=== PATIENT | male | born 1990 | race Hispanic/Latino ===

== ENCOUNTER 2023-11-12 16:38 | Emergency (ER) | payer OTHER, SELFPAY ==
[2023-11-12 16:49] VITALS: PULSE 67; RESP 16; TEMP 36.2; O2SAT 100; BMI 25.1
--- NOTE | 2023-11-12 17:11 | DI.CT.S_ITS ---
PROCEDURE: CT LUMBAR SPINE WO CON INDICATIONS: pain/ injury TECHNIQUE: Noncontrast 3 mm thick sections acquired from the T12 level to the sacrum. Sagittal and coronal reformats were constructed. For radiation dose reduction, the following was used: automated exposure control. COMPARISON: None. FINDINGS: Image quality: Excellent. Bones: There is straightening of the normal lumbar lordosis that may be secondary to positioning or muscle spasm. No acute vertebral body compression fractures. No suspicious lytic or blastic bony lesions. No pars defects. T12-L1, L1-2, L2-3, L3-4, and L4-5: No significant spinal canal stenosis or neural foraminal narrowing. L5-S1: Right paracentral disc extrusion is seen measuring approximately the 12 x 12 x 13 mm, which effaces the right lateral recess and could impinge upon the traversing right S1 nerve root. There is also moderate right and bcfk-ix-eopvyhsp left neural foraminal narrowing at this level due to circumferential disc bulging. Mild narrowing of the central spinal canal is seen. Soft tissues: No retroperitoneal masses or hematomas. Visualized aorta is normal in caliber. IMPRESSION: At L5-S1, a right paracentral disc extrusion is seen superimposed on circumferential disc bulging, which results in effacement of the right lateral recess and possible impingement upon the traversing right S1 nerve root. Recommend correlation with neurologic exam findings. There is also mild narrowing of the spinal canal as well as moderate right and lfse-vw-tmeznbfs left neural foraminal narrowing. Approved by: Bishop Castillo M.D. on 11/12/2023 at 17:30
--- NOTE | 2023-11-12 19:29 | ED_ITS ---
HPI - Back Pain/Injury General Chief Complaint: Back Pain/Injury Stated Complaint: back pain, rt leg numbness/pain unable to wt bear Time Seen by Provider: 11/12/23 19:08 Source: patient Mode of arrival: Ambulatory Limitations: no limitations History of Present Illness HPI Narrative: Patient is a 32-year-old male who approximately 1 week ago had an incident where he was bending over to pick something up and started to have lower back discomfort. Has a sudden onset. It is both sides but right more than left. He went to an outside emergency department. Was prescribed Mobic and Robaxin. He has been taking these medications with only minimal relief. He does have radiation down to his right leg. No change in bowel habits. No urinary symptoms. Is emptying his bladder. No fevers. No Abdominal pain. Related Data Previous Rx's Medication Instructions Recorded hydrocodone 5 mg-acetaminophen 325 1 tab PO Q8H PRN pain #20 tabs 11/12/23 mg tablet meloxicam 7.5 mg tablet 7.5 mg PO BID #60 tabs 11/12/23 methylprednisolone 4 mg tablets in See Rx Instructions PO .COMPLEX 11/12/23 a dose pack (Medrol (Thad)) #21 ea Allergies Allergy/AdvReac Type Severity Reaction Status Date / Time No Known Drug Allergies Allergy Verified 11/12/23 16:53 Review of Systems Constitutional Constitutional: Reports system reviewed and no additional complaints, except as documented Musculoskeletal Musculoskeletal: Reports system reviewed and no additional complaints, except as documented Integumentary/Breasts Skin/Breast: Reports system reviewed and no additional complaints, except as documented Neurologic Neurologic: Reports system reviewed and no additional complaints, except as documented Patient History Social History Smoking Status: Never smoker Smoking Status: Never smoker alcohol intake frequency: other Substance Use Type: does not use Exam Initial Vital Signs Initial Vital Signs: Vital Signs Temperature 97.2 F L 11/12/23 16:49 Pulse Rate 67 11/12/23 16:49 Respiratory Rate 16 11/12/23 16:49 Pulse Oximetry 100 11/12/23 16:49 Oxygen Delivery Method Room Air 11/12/23 16:49 Const General: No ill appearing HENMT Head: normal to inspection and normocephalic Resp Effort & Inspection: normal respiratory effort Cardio Rate: regular rate GI Inspection: normal to inspection and non-distended Palpation: soft and No tender Back/Spine/Pelvis Thoracic/Lumbar Spine: No thoraco-lumbar spasm, No thoracic spinal tenderness and No lumbar spinal tenderness Neuro General: patient alert, patient awake and moves all extremities Extrem Other: No gross deformities Course Orders Ordered: ED Orders 11/12/23 17:11 CT lumbar spine wo con Stat Discontinued Medications Hydromorphone HCl (Hydromorphone 1 Mg Inj) 1 mg IM NOW ONE Stop: 11/12/23 19:30 Last Admin: 11/12/23 19:41 Dose: 1 mg Documented By: SB Ketorolac Tromethamine (Ketorolac 30 Mg/Ml Vial) 30 mg IM NOW ONE Stop: 11/12/23 19:30 Last Admin: 11/12/23 19:41 Dose: 30 mg Documented By: SB Vital Signs Vital signs: Vital Signs - 8 hr 11/12/23 19:38 Pulse Rate 66 Respiratory Rate 14 Blood Pressure 120/75 Pulse Oximetry 100 MDM - Back Pain/Injury Imaging Data CT lumbar spine: Radiologist's Impression: PROCEDURE: CT LUMBAR SPINE WO CON INDICATIONS: pain/ injury TECHNIQUE: Noncontrast 3 mm thick sections acquired from the T12 level to the sacrum. Sagittal and coronal reformats were constructed. For radiation dose reduction, the following was used: automated exposure control. COMPARISON: None. FINDINGS: Image quality: Excellent. Bones: There is straightening of the normal lumbar lordosis that may be secondary to positioning or muscle spasm. No acute vertebral body compression fractures. No suspicious lytic or blastic bony lesions. No pars defects. T12-L1, L1-2, L2-3, L3-4, and L4-5: No significant spinal canal stenosis or neural foraminal narrowing. L5-S1: Right paracentral disc extrusion is seen measuring approximately the 12 x 12 x 13 mm, which effaces the right lateral recess and could impinge upon the traversing right S1 nerve root. There is also moderate right and [id number]-do-mtbxetvl left neural foraminal narrowing at this level due to circumferential disc bulging. Mild narrowing of the central spinal canal is seen. Soft tissues: No retroperitoneal masses or hematomas. Visualized aorta is normal in caliber. IMPRESSION: At L5-S1, a right paracentral disc extrusion is seen superimposed on circumferential disc bulging, which results in effacement of the right lateral recess and possible impingement upon the traversing right S1 nerve root. Recommend correlation with neurologic exam findings. There is also mild narrowing of the spinal canal as well as moderate right and gbls-[id number] left neural foraminal narrowing MDM Narrative Medical decision making narrative: CT scan shows no acute fractures. There are findings on the CT scan that would be consistent with disc disease which given his presentation today is not surprising. Low suspicion for cauda equina. No fevers. No saddle anesthesia. No urinary issues. I did discuss back pain with him. I suspect that his back pain will improve with time. We discussed conservative measures to include he at/ice and also staying active. I will refill his Mobic. We will also sent home with a prescription for pain medication. Steroids for short period of time as well. Do recommend that he follow-up with his primary provider to discuss further evaluation to include a referral to see physical therapy and potentially an MRI. Patient expressed understanding and agreement. Discharge Plan Departure Patient Disposition: Home Clinical Impression: Lumbar back pain with radiculopathy affecting lower extremity Instructions: DI for Low Back Pain Activity Restrictions/Additional Instructions: I recommend you take all medications as directed. You are going to need a follow-up with your medical department for fdc work-related restrictions. You can ambulate as tolerated. Return to the emergency department for new symptoms. Prescriptions: New meloxicam 7.5 mg tablet 7.5 mg PO BID Qty: 60 2RF hydrocodone-acetaminophen 5-325 mg tablet 1 tab PO Q8H PRN (Reason: pain) Qty: 20 0RF methylprednisolone [Medrol (Thad)] 4 mg tablets,dose pack See Rx Instructions .ROUTE .COMPLEX Qty: 21 0RF Rx Instructions: orally per package directions Referrals: Key Nguyen MD [Primary Care Provider] - Stand Alone Forms: Patient Portal/API, Work Release Note
[2023-11-12 19:38] VITALS: BP 120/75; PULSE 66; RESP 14; O2SAT 100
[2023-11-12] MEDS: HYDROMORPHONE 1 MG INJ IM (19:41)
[2023-11-12] MEDS: KETOROLAC 30 MG/ML VIAL IM (19:41)
== END 2023-11-12 20:00 | disposition home or self-care (01) ==
PROVIDERS: Emergency Provider Emergency Medicine; PCP Student in an Organized Health Care Education/Training Program
DX: M54.16 Radiculopathy, lumbar region (principal)
CPT/HCPCS: 72131; 96372; 99283; 99284; J1170; J1885

== ENCOUNTER 2023-12-30 20:18 | Emergency (ER) | payer OTHER, SELFPAY ==
[2023-12-30] VITALS (10 sets, daily range): BP systolic 113–132; BP diastolic 61–77; PULSE 67–80; RESP 15–20; TEMP 36.3; O2SAT 98–100; BMI 25.7
--- NOTE | 2023-12-30 20:49 | ED_ITS ---
HPI - Chest Pain General Chief Complaint: Chest Pain Stated Complaint: chest pains/lt arm pain/slurred speech/facial Time Seen by Provider: 12/30/23 20:30 Source: patient Mode of arrival: Ambulatory Limitations: no limitations History of Present Illness HPI narrative: 33-year-old male with no significant past medical history presents for evaluation of chest pain. Patient reports 2 weeks of intermittent chest pains. Sometimes in the left-hand side, sometimes on the right-hand side. Patient states that occasionally the pain will radiate to his arms and cause him to occasionally have bilateral arm numbness. Patient reported slurred speech in triage, however he denies this to me. Denies family history of heart problems. Related Data Previous Rx's Medication Instructions Recorded hydrocodone 5 mg-acetaminophen 325 1 tab PO Q8H PRN pain #20 tabs 11/12/23 mg tablet meloxicam 7.5 mg tablet 7.5 mg PO BID #60 tabs 11/12/23 methylprednisolone 4 mg tablets in See Rx Instructions PO .COMPLEX 11/12/23 a dose pack (Medrol (Thad)) #21 ea Allergies Allergy/AdvReac Type Severity Reaction Status Date / Time No Known Drug Allergies Allergy Verified 11/12/23 16:53 Review of Systems Review of Systems Narrative: See HPI Patient History Social History Smoking Status: Never smoker Smoking Status: Never smoker alcohol intake frequency: other Substance Use Type: does not use Exam Initial Vital Signs Initial Vital Signs: Vital Signs Temperature 97.3 F L 12/30/23 20:20 Pulse Rate 77 12/30/23 20:20 Respiratory Rate 16 12/30/23 20:20 Blood Pressure 130/77 12/30/23 20:20 Pulse Oximetry 100 12/30/23 20:20 Oxygen Delivery Method Room Air 12/30/23 20:20 Const: Awake, alert, no acute distress, nontoxic appearing Cardiac: regular rate, regular rhythm RESP: unlabored, clear bilaterally, no wheezing GI: Soft, nontender, nondistended, no rebound, no guarding MSK: Atraumatic, full range of motion, pulses equal Skin: Warm, Dry, intact, no rashes Neuro: AO x3, CN II-XII grossly intact, moves all extremities Course Orders Ordered: ED Orders 12/30/23 20:25 EKG-12 Lead Stat 12/30/23 22:04 Chest [XR chest 1V] Stat EKG-12 Lead Stat 12/30/23 22:14 CBC Auto Diff [Complete Blood Count AUTO DIFF] Stat CMP [Comprehensive Metabolic Panel] Stat Troponin & CK Cardiac Panel Stat Discontinued Medications Ketorolac Tromethamine (Ketorolac 30 Mg/Ml Vial) 15 mg IV NOW ONE Stop: 12/30/23 22:04 Last Admin: 12/30/23 22:35 Dose: 15 mg Documented By: ANTIONE Vital Signs Vital signs: Vital Signs - 8 hr 12/30/23 21:00 12/30/23 21:00 12/30/23 21:30 Pulse Rate 69 71 Respiratory Rate 20 18 Blood Pressure 132/75 Pulse Oximetry 99 98 Oxygen Delivery Method Room Air 12/30/23 21:30 12/30/23 22:00 12/30/23 22:00 Pulse Rate 78 Respiratory Rate 16 Blood Pressure 116/65 120/61 Pulse Oximetry 99 Oxygen Delivery Method 12/30/23 22:30 12/30/23 22:39 12/30/23 22:39 Pulse Rate 80 67 Respiratory Rate 20 15 Blood Pressure 113/71 Pulse Oximetry 100 100 Oxygen Delivery Method 12/30/23 23:00 12/30/23 23:00 12/30/23 23:30 Pulse Rate 72 69 Respiratory Rate 17 19 Blood Pressure 113/71 113/71 Pulse Oximetry 100 98 Oxygen Delivery Method Room Air MDM - Chest Pain Differential Diagnosis Differential diagnosis: Likely fracture of rib, pneumothorax and stable angina Lab Data 12/30/23 22:14 12/30/23 22:14 Labs: Lab Results 12/30/23 Range/Units 22:14 WBC 8.9 (4.5-11.0) X10^3/uL RBC 5.30 (4.5-5.9) X10^6/uL Hgb 14.7 (13.5-17.5) g/dL Hct 42.9 (41-53) % MCV 80.9 (80-100) fL MCH 27.7 (26-34) PG MCHC 34.3 (30-36) % RDW 13.5 (11.6-14.8) % Plt Count 303 (150-400) X10^3/uL Neut % (Auto) 62.0 (50-75) % Lymph % (Auto) 26.3 (25-40) % [place] % (Auto) 9.6 (3-14) % Eos % (Auto) 1.0 L (2-4) % Baso % (Auto) 1.1 (0-2) % Neut # (Auto) 5500 (5267-4733) /uL Lymph # (Auto) 2300 (7602-0775) /uL [place] # (Auto) 900 (0-900) /uL Eos # (Auto) 100 (0-450) /uL Baso # (Auto) 100 (0-100) /uL Sodium 138 (137-145) mmol/L Potassium 4.1 (3.4-5.1) mmol/L Chloride 105 (98-107) mmol/L Carbon Dioxide 28 (22-32) mmol/L BUN 16 (9-20) mg/dL Creatinine 0.74 (0.66-1.25) mg/dL Estimated GFR > 60 (>60) mL/min BUN/Creatinine Ratio 21.6 (6-22) Glucose 94 (70-100) mg/dL Calcium 9.1 (8.4-10.2) mg/dL Total Bilirubin 0.8 (0.2-1.3) mg/dL AST 45 (17-59) IU/L ALT 93 H (<50) IU/L Alkaline Phosphatase 69 (38-126) U/L Total Creatine Kinase 115 (55-170) U/L Troponin I < 0.012 (0.01-0.034) ng/mL Total Protein 7.0 (6.3-8.2) g/dL Albumin 4.4 (3.5-5.0) g/dL Globulin 2.6 (1.7-4.1) g/dL Albumin/Globulin Ratio 1.7 (1.0-2.8) Imaging Data Chest x-ray: Radiologist's Impression: PROCEDURE: XR CHEST 1V INDICATIONS: chest pain TECHNIQUE: One view of the chest was acquired. COMPARISON: None. FINDINGS: Surgical changes and devices: None. Lungs and pleura: Lungs are clear. No pleural effusions or pneumothorax. Mediastinum: Mediastinal contours appear normal. Heart size is normal. Bones and chest wall: No suspicious bony lesions. Overlying soft tissues appear unremarkable. IMPRESSION: No acute cardiopulmonary abnormality is seen. Dictated by: Chris Cheung M.D. on 12/30/2023 at 22:35 Approved by: Chris Cheung M.D. on 12/30/2023 at 22:3 ECG Data Interpretation: Normal sinus rhythm at 77 beats per minute. Normal NC, normal axis, no ST T wave changes, no STEMI MDM Narrative Medical decision making narrative: Well-appearing patient with 2 weeks of chest pain. Slurred speech reported in triage, however patient has no complaints of slurred speech, his speech is clear and intelligible in the emergency department. Heart score 0. EKG normal sinus rhythm without concerning findings. Laboratory work is unremarkable, troponin undetectable. Chest x-ray negative for acute findings. Low risk for ACS. Pain improved with IV Toradol. Patient informed of lab and imaging findings, recommended PCP follow up. Discharge Plan Departure Patient Disposition: Home Clinical Impression: Chest pain Instructions: DI for Chest Pain Activity Restrictions/Additional Instructions: Your laboratory work, EKG, and chest x-ray were normal. I do not know the exact cause of your chest pain at this time. Take Tylenol and ibuprofen as needed for discomfort. I do recommend following up with your primary care physician, especially if you continue to experience pain. Prescriptions: No Action meloxicam 7.5 mg tablet 7.5 mg PO BID Qty: 60 2RF hydrocodone-acetaminophen 5-325 mg tablet 1 tab PO Q8H PRN (Reason: pain) Qty: 20 0RF methylprednisolone [Medrol (Thad)] 4 mg tablets,dose pack See Rx Instructions .ROUTE .COMPLEX Qty: 21 0RF Rx Instructions: orally per package directions Referrals: Key Nguyen MD [Primary Care Provider] - Stand Alone Forms: Patient Portal/API, Work Release Note
--- NOTE | 2023-12-30 22:04 | DI.RAD.S_ITS ---
PROCEDURE: XR CHEST 1V INDICATIONS: chest pain TECHNIQUE: One view of the chest was acquired. COMPARISON: None. FINDINGS: Surgical changes and devices: None. Lungs and pleura: Lungs are clear. No pleural effusions or pneumothorax. Mediastinum: Mediastinal contours appear normal. Heart size is normal. Bones and chest wall: No suspicious bony lesions. Overlying soft tissues appear unremarkable. IMPRESSION: No acute cardiopulmonary abnormality is seen. Dictated by: Chris Cheung M.D. on 12/30/2023 at 22:35 Approved by: Chris Cheung M.D. on 12/30/2023 at 22:35
[2023-12-30 22:21] LABS: Add Manual Diff / Slide Review NO; Basophils Absolute Auto 100 /uL (0-100); Basophils Percent Auto 1.1 % (0-2); Eosinophils Absolute Auto 100 /uL (0-450); Hematocrit 42.9 % (41-53); Hemoglobin 14.7 g/dL (13.5-17.5); Lymphocytes Absolute Auto 2300 /uL (1100-4500); Lymphocytes Percent Auto 26.3 % (25-40); Mean Corpuscular HGB Conc 34.3 % (30-36); Mean Corpuscular Hemoglobin 27.7 PG (26-34); Mean Corpuscular Volume 80.9 fL (80-100); Monocytes Absolute Auto 900 /uL (0-900); Monocytes Percent Auto 9.6 % (3-14); Neutrophils Absolute Auto 5500 /uL (1500-7000); Platelet Count 303 X10^3/uL (150-400); Red Cell Distribution Width 13.5 % (11.6-14.8); White Blood Cell Count 8.9 X10^3/uL (4.5-11.0)
[2023-12-30] MEDS: KETOROLAC 30 MG/ML VIAL 15 MG IV (22:35)
[2023-12-30 22:37] LABS: Alanine Aminotransferase 93 IU/L (<50); Albumin 4.4 g/dL (3.5-5.0); Albumin Globulin Ratio 1.7 (1.0-2.8); Alkaline Phosphatase 69 U/L (38-126); Aspartate Aminotransferase 45 IU/L (17-59); BUN Creatinine Ratio 21.6 (6-22); Bilirubin Total 0.8 mg/dL (0.2-1.3); Blood Urea Nitrogen 16 mg/dL (9-20); Calcium 9.1 mg/dL (8.4-10.2); Carbon Dioxide 28 mmol/L (22-32); Chloride 105 mmol/L (98-107); Creatine Kinase 115 U/L (55-170); Estimated Glomerular Filt Rate > 60 mL/min (>60); Globulin 2.6 g/dL (1.7-4.1); Glucose 94 mg/dL (70-100); HEMOLYSIS < 15 (0-50); Potassium 4.1 mmol/L (3.4-5.1); Sodium 138 mmol/L (137-145)
[2023-12-30 22:48] LABS: Troponin I < 0.012 ng/mL (0.01-0.034)
== END 2023-12-30 23:32 | disposition home or self-care (01) ==
PROVIDERS: Emergency Provider Emergency Medicine; PCP Student in an Organized Health Care Education/Training Program
DX: R07.9 Chest pain, unspecified (principal)
CPT/HCPCS: 36415; 71045; 80053; 82550; 84484; 85025; 93005; 96374; 99284; J1885

== ENCOUNTER 2024-02-03 12:31 | Emergency (ER) | payer OTHER, SELFPAY ==
[2024-02-03 12:40] VITALS: BP 119/58; PULSE 71; RESP 12; TEMP 36.5; O2SAT 98; BMI 25.1
--- NOTE | 2024-02-03 12:46 | DI.RAD.S_ITS ---
PROCEDURE: XR CHEST 1V INDICATIONS: chest pain TECHNIQUE: One view of the chest was acquired. COMPARISON: [facility], CR, XR CHEST 1V, 12/30/2023, 22:03. FINDINGS: Surgical changes and devices: None. Lungs and pleura: Lungs are clear. No pleural effusions or pneumothorax. Mediastinum: Mediastinal contours appear normal. Heart size is normal. Bones and chest wall: No suspicious bony lesions. Overlying soft tissues appear unremarkable. IMPRESSION: No acute pulmonary process. Dictated by: Sonali Huitron M.D. on 02/03/2024 at 13:44 Approved by: Sonali Huitron M.D. on 02/03/2024 at 13:44
--- NOTE | 2024-02-03 12:46 | EKG_ITS ---
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
[2024-02-03 13:12] LABS: Prothrombin Time 11.7 SECONDS (9.4-12.5)
[2024-02-03 13:14] LABS: PTT Partial Thromboplastin Tim 34 SECONDS (25.1-36.5)
[2024-02-03 13:15] LABS: Add Manual Diff / Slide Review NO; Basophils Absolute Auto 0 /uL (0-100); Basophils Percent Auto 0.6 % (0-2); Eosinophils Absolute Auto 100 /uL (0-450); Eosinophils Percent Auto 0.7 % (2-4); Hematocrit 42.6 % (41-53); Hemoglobin 14.6 g/dL (13.5-17.5); Lymphocytes Absolute Auto 1700 /uL (1100-4500); Lymphocytes Percent Auto 22.4 % (25-40); Mean Corpuscular HGB Conc 34.4 % (30-36); Mean Corpuscular Hemoglobin 28.2 PG (26-34); Monocytes Absolute Auto 500 /uL (0-900); Monocytes Percent Auto 6.3 % (3-14); Neutrophils Absolute Auto 5200 /uL (1500-7000); Platelet Count 280 X10^3/uL (150-400); Red Blood Cell Count 5.19 X10^6/uL (4.5-5.9); Red Cell Distribution Width 13.7 % (11.6-14.8); White Blood Cell Count 7.5 X10^3/uL (4.5-11.0)
[2024-02-03 13:21] LABS: Alanine Aminotransferase 37 IU/L (<50); Albumin 4.6 g/dL (3.5-5.0); Albumin Globulin Ratio 1.6 (1.0-2.8); Alkaline Phosphatase 67 U/L (38-126); Aspartate Aminotransferase 29 IU/L (17-59); Bilirubin Total 0.8 mg/dL (0.2-1.3); Blood Urea Nitrogen 18 mg/dL (9-20); Carbon Dioxide 27 mmol/L (22-32); Chloride 106 mmol/L (98-107); Creatine Kinase 82 U/L (55-170); Estimated Glomerular Filt Rate > 60 mL/min (>60); Globulin 2.9 g/dL (1.7-4.1); Glucose 96 mg/dL (70-100); HEMOLYSIS < 15 (0-50); Lipase 61 U/L (23-300); Magnesium 2.1 mg/dL (1.6-2.3); Potassium 4.5 mmol/L (3.4-5.1); Sodium 137 mmol/L (137-145); Total Protein 7.5 g/dL (6.3-8.2)
[2024-02-03 13:32] LABS: NT-proBNP (BNP-Adult 18+) < 20 pg/mL (<125); Troponin I < 0.012 ng/mL (0.01-0.034)
[2024-02-03 15:44] VITALS: BP 117/72; PULSE 67; RESP 16; O2SAT 100
--- NOTE | 2024-02-10 14:07 | ED_ITS ---
HPI - Chest Pain <Rimma Blake PA-C - Last Filed: 02/10/24 14:28> General Chief Complaint: Chest Pain Stated Complaint: chest left arm pain Time Seen by Provider: 02/03/24 15:03 Source: patient Mode of arrival: Ambulatory History of Present Illness HPI narrative: 33-year-old male presents to the ED with 1 day of left bicep and chest pain. Patient states that he was stretching earlier today, when he felt a cramp in his left biceps, pain radiated into his left chest. Patient states that since then the cramp has eased and his biceps feels somewhat sore but not painful. The chest pain has resolved as well. Patient describes the chest pain as more muscular. No fever, chills, shortness of breath, numbness, tingling, weakness. No sudden cardiac deaths in the family. Patient has been having intermittent chest, neck and arm pains for which he had a full cardiac workup a month ago and the study was negative. Related Data Previous Rx's Medication Instructions Recorded hydrocodone 5 mg-acetaminophen 325 1 tab PO Q8H PRN pain #20 tabs 11/12/23 mg tablet meloxicam 7.5 mg tablet 7.5 mg PO BID #60 tabs 11/12/23 methylprednisolone 4 mg tablets in See Rx Instructions PO .COMPLEX 11/12/23 a dose pack (Medrol (Thad)) #21 ea Allergies Allergy/AdvReac Type Severity Reaction Status Date / Time No Known Drug Allergies Allergy Verified 02/03/24 12:44 Review of Systems <Rimma Blake PA-C - Last Filed: 02/10/24 14:28> Constitutional Constitutional: Denies chills, Denies fatigue, Denies fever(s), Denies frequent falls, Denies lethargy and Denies weakness Eyes Eyes: Denies change in vision, Denies eye discharge, Denies irritation and Denies loss of vision ENT Ears, Nose, Mouth, and Throat: Denies change in voice, Denies dizziness, Denies neck pain, Denies sore throat and Denies throat swelling Cardiovascular Cardiovascular: Denies chest pain, Denies irregular heart rhythm, Denies lightheadedness, Denies palpitations, Denies dyspnea, Denies dyspnea on exertion and Denies orthopnea Respiratory Respiratory: Denies cough, Denies dyspnea, Denies dyspnea on exertion and Denies wheezing Gastrointestinal Gastrointestinal: Denies abdominal pain, Denies change in bowel habits, Denies diarrhea, Denies nausea and Denies vomiting Musculoskeletal Musculoskeletal: Denies neck pain and Denies numbness Comments: Left bicep, left chest pain Integumentary/Breasts Skin/Breast: Denies pruritus, Denies erythema, Denies rash and Denies wounds Neurologic Neurologic: Denies behavioral changes, Denies confusion, Denies dizziness, Denies frequent falls, Denies loss of vision, Denies numbness and Denies weakness Psychiatric Psychiatric: Denies anxiety, Denies behavioral changes, Denies confusion, Denies depression, Denies homicidal ideation and Denies suicidal ideation Endocrine Endocrine: Denies fatigue, Denies flushing and Denies palpitations Hematologic/Lymphatic Hematologic/Lymphatic: Denies easy bruising Allergic/Immunologic Allergic/Immunologic: Denies urticaria, Denies throat swelling and Denies wheezing Patient History <Rimma Blake PA-C - Last Filed: 02/10/24 14:28> Social History Smoking Status: Never smoker Smoking Status: Never smoker alcohol intake frequency: other Substance Use Type: does not use Exam <Rimma Blake PA-C - Last Filed: 02/10/24 14:28> Narrative Exam Narrative: Const General:?cooperative, healthy appearing and comfortable [facility] Head:?normal to inspection Ears:?hearing grossly normal bilaterally Nose:?external nose normal Face and sinus:?normal facial exam and sinuses nontender Mouth:?oral mucosae normal Throat:?posterior oropharynx normal Eyes General:?appearance normal, both eyes and all related structures Neck Neck:?normal visual inspection and no lymphadenopathy noted Resp Effort & Inspection:?normal respiratory effort Auscultation:?clear to auscultation bilaterally Cardio Rate:?regular rate Rhythm:?regular rhythm Musculoskeletal Mild soreness of the left biceps muscle. No chest wall pain with palpation. Neurovascularly intact. Neuro General:?patient alert, patient awake and patient oriented x3 Initial Vital Signs Initial Vital Signs: Vital Signs Temperature 97.7 F 02/03/24 12:40 Pulse Rate 71 02/03/24 12:40 Respiratory Rate 12 02/03/24 12:40 Blood Pressure 119/58 L 02/03/24 12:40 Pulse Oximetry 98 02/03/24 12:40 Oxygen Delivery Method Room Air 02/03/24 12:40 <Orin Martinez MD - Last Filed: 02/17/24 21:34> Initial Vital Signs Initial Vital Signs: Vital Signs Temperature 97.7 F 02/03/24 12:40 Pulse Rate 71 02/03/24 12:40 Respiratory Rate 12 02/03/24 12:40 Blood Pressure 119/58 L 02/03/24 12:40 Pulse Oximetry 98 02/03/24 12:40 Oxygen Delivery Method Room Air 02/03/24 12:40 Course <Rimma Blake PA-C - Last Filed: 02/10/24 14:28> Orders Ordered: Discontinued Medications Aspirin (Aspirin 81 Mg Chew Tab) 324 mg PO NOW ONE Stop: 02/03/24 12:47 <Orin Martinez MD - Last Filed: 02/17/24 21:34> Orders Ordered: Discontinued Medications Aspirin (Aspirin 81 Mg Chew Tab) 324 mg PO NOW ONE Stop: 02/03/24 12:47 MDM - Chest Pain <Rimma Blake PA-C - Last Filed: 02/10/24 14:28> Lab Data 02/03/24 12:55 02/03/24 12:55 Labs: Lab Results 02/03/24 Range/Units 12:55 WBC 7.5 (4.5-11.0) X10^3/uL RBC 5.19 (4.5-5.9) X10^6/uL Hgb 14.6 (13.5-17.5) g/dL Hct 42.6 (41-53) % MCV 82.0 (80-100) fL MCH 28.2 (26-34) PG MCHC 34.4 (30-36) % RDW 13.7 (11.6-14.8) % Plt Count 280 (150-400) X10^3/uL Neut % (Auto) 70.0 (50-75) % Lymph % (Auto) 22.4 L (25-40) % Guthrie % (Auto) 6.3 (3-14) % Eos % (Auto) 0.7 L (2-4) % Baso % (Auto) 0.6 (0-2) % Neut # (Auto) 5200 (0117-9642) /uL Lymph # (Auto) 1700 (2179-2376) /uL [place]rie # (Auto) 500 (0-900) /uL Eos # (Auto) 100 (0-450) /uL Baso # (Auto) 0 (0-100) /uL PT 11.7 (9.4-12.5) SECONDS INR 1.0 (0.9-1.3) APTT 34 (25.1-36.5) SECONDS Sodium 137 (137-145) mmol/L Potassium 4.5 (3.4-5.1) mmol/L Chloride 106 (98-107) mmol/L Carbon Dioxide 27 (22-32) mmol/L BUN 18 (9-20) mg/dL Creatinine 0.75 (0.66-1.25) mg/dL Estimated GFR > 60 (>60) mL/min BUN/Creatinine Ratio 24.0 H (6-22) Glucose 96 (70-100) mg/dL Calcium 9.0 (8.4-10.2) mg/dL Magnesium 2.1 (1.6-2.3) mg/dL Total Bilirubin 0.8 (0.2-1.3) mg/dL AST 29 (17-59) IU/L ALT 37 (<50) IU/L Alkaline Phosphatase 67 (38-126) U/L Total Creatine Kinase 82 (55-170) U/L Troponin I < 0.012 (0.01-0.034) ng/mL NT-Pro-B Natriuret Pep < 20 (<125) pg/mL Total Protein 7.5 (6.3-8.2) g/dL Albumin 4.6 (3.5-5.0) g/dL Globulin 2.9 (1.7-4.1) g/dL Albumin/Globulin Ratio 1.6 (1.0-2.8) Lipase 61 (23-300) U/L [facility] Narrative Medical decision making narrative: 33-year-old male presents to the ED with 1 day of left bicep and chest pain. Obtained EKG, chest x-ray, labs, troponin to rule out cardiopulmonary etiology. Labs, troponin within normal limits. Chest x-ray without acute findings. EKG is normal sinus rhythm with nonspecific ST abnormality.. History and physical exam are most consistent with musculoskeletal etiology, cramp of left bicep radiating into the left chest. Patient's symptoms appear to have resolved and there is only mild soreness in the left biceps area. Recommend ibuprofen, heat for symptoms. ED return precautions discussed with patient. Patient verbalized understanding. Medical records reviewed: Yes. <Orin Martinez MD - Last Filed: 02/17/24 21:34> Lab Data Labs: Lab Results 02/03/24 Range/Units 12:55 WBC 7.5 (4.5-11.0) X10^3/uL RBC 5.19 (4.5-5.9) X10^6/uL Hgb 14.6 (13.5-17.5) g/dL Hct 42.6 (41-53) % MCV 82.0 (80-100) fL MCH 28.2 (26-34) PG MCHC 34.4 (30-36) % RDW 13.7 (11.6-14.8) % Plt Count 280 (150-400) X10^3/uL Neut % (Auto) 70.0 (50-75) % Lymph % (Auto) 22.4 L (25-40) % Guthrie % (Auto) 6.3 (3-14) % Eos % (Auto) 0.7 L (2-4) % Baso % (Auto) 0.6 (0-2) % Neut # (Auto) 5200 (7847-9601) /uL Lymph # (Auto) 1700 (1711-7838) /uL [place]rie # (Auto) 500 (0-900) /uL Eos # (Auto) 100 (0-450) /uL Baso # (Auto) 0 (0-100) /uL PT 11.7 (9.4-12.5) SECONDS INR 1.0 (0.9-1.3) APTT 34 (25.1-36.5) SECONDS Sodium 137 (137-145) mmol/L Potassium 4.5 (3.4-5.1) mmol/L Chloride 106 (98-107) mmol/L Carbon Dioxide 27 (22-32) mmol/L BUN 18 (9-20) mg/dL Creatinine 0.75 (0.66-1.25) mg/dL Estimated GFR > 60 (>60) mL/min BUN/Creatinine Ratio 24.0 H (6-22) Glucose 96 (70-100) mg/dL Calcium 9.0 (8.4-10.2) mg/dL Magnesium 2.1 (1.6-2.3) mg/dL Total Bilirubin 0.8 (0.2-1.3) mg/dL AST 29 (17-59) IU/L ALT 37 (<50) IU/L Alkaline Phosphatase 67 (38-126) U/L Total Creatine Kinase 82 (55-170) U/L Troponin I < 0.012 (0.01-0.034) ng/mL NT-Pro-B Natriuret Pep < 20 (<125) pg/mL Total Protein 7.5 (6.3-8.2) g/dL Albumin 4.6 (3.5-5.0) g/dL Globulin 2.9 (1.7-4.1) g/dL Albumin/Globulin Ratio 1.6 (1.0-2.8) Lipase 61 (23-300) U/L Discharge Plan Departure Patient Disposition: Home Clinical Impression: Atypical chest pain Arm pain Qualifiers: Laterality: left Qualified Code(s): M79.602 - Pain in left arm Instructions: DI for Atypical Chest Pain, DI for Arm Pain Activity Restrictions/Additional Instructions: You were evaluated in the ED today for left arm and chest pain. Your tests were all normal. It appears that you have a musculoskeletal sprain/strain of your left bicep muscle. You may apply heat, take ibuprofen for the soreness. Return to the ED if you have worsening symptoms. Prescriptions: No Action meloxicam 7.5 mg tablet 7.5 mg PO BID Qty: 60 2RF hydrocodone-acetaminophen 5-325 mg tablet 1 tab PO Q8H PRN (Reason: pain) Qty: 20 0RF methylprednisolone [Medrol (Thad)] 4 mg tablets,dose pack See Rx Instructions .ROUTE .COMPLEX Qty: 21 0RF Rx Instructions: orally per package directions Referrals: Key Nguyen MD [Primary Care Provider] - Stand Alone Forms: Patient Portal/API ED Sign-out <Orin Martinez MD - Last Filed: 02/17/24 21:34> Cosign ED Attending Austinature Attestation: I was immediately available in the department for consultation throughout this patient's visit. Orin Martinez MD
== END 2024-02-03 15:54 | disposition home or self-care (01) ==
PROVIDERS: Emergency Medicine; Emergency Provider Student in an Organized Health Care Education/Training Program; PCP Student in an Organized Health Care Education/Training Program
DX: R07.89 Other chest pain (principal); M79.602 Pain in left arm
CPT/HCPCS: 36415; 71045; 80053; 82550; 83690; 83735; 83880; 84484; 85025; 85610; 85730; 93005; 99283; 99284

== ENCOUNTER 2024-03-10 21:51 | Emergency (ER) | payer OTHER, SELFPAY ==
[2024-03-10 21:53] VITALS: BP 136/79; PULSE 65; RESP 21; TEMP 36.7; O2SAT 98; BMI 34.0
[2024-03-10 21:59] VITALS: BP 136/79; PULSE 65; O2SAT 99
[2024-03-10 22:00] VITALS: PULSE 64; O2SAT 98
--- NOTE | 2024-03-10 22:03 | EKG_ITS ---
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
[2024-03-10 22:30] VITALS: PULSE 60; RESP 20; O2SAT 98
--- NOTE | 2024-03-10 22:33 | ED.CHESTPAIN ---
HPI - Chest Pain General Chief Complaint: Chest Pain Stated Complaint: chest, neck and head pain Time Seen by Provider: 03/10/24 21:52 Source: patient Mode of arrival: Ambulatory Limitations: no limitations History of Present Illness HPI narrative: 33-year-old male presents for chest pain, neck pain, back pain. Patient states that he was had intermittent chest pains and arm pains for the last 2-3 months, however this afternoon he had an episode while driving where he felt lightheaded and like he was about to pass out. He states that he was a primary care doctor's appointment later in the month. He states that he occasionally takes low-dose ibuprofen if the pain gets bad, but has not taken any medications recently. Related Data Previous Rx's Medication Instructions Recorded hydrocodone 5 mg-acetaminophen 325 1 tab PO Q8H PRN pain #20 tabs 11/12/23 mg tablet meloxicam 7.5 mg tablet 7.5 mg PO BID #60 tabs 11/12/23 methylprednisolone 4 mg tablets in See Rx Instructions PO .COMPLEX 11/12/23 a dose pack (Medrol (Thad)) #21 ea Allergies Allergy/AdvReac Type Severity Reaction Status Date / Time No Known Drug Allergies Allergy Verified 03/10/24 22:03 Patient History Social History Smoking Status: Never smoker Smoking Status: Never smoker alcohol intake frequency: other Substance Use Type: does not use Exam Initial Vital Signs Initial Vital Signs: Vital Signs Temperature 98.0 F 03/10/24 21:53 Pulse Rate 65 03/10/24 21:53 Respiratory Rate 21 03/10/24 21:53 Blood Pressure 136/79 03/10/24 21:53 Pulse Oximetry 98 03/10/24 21:53 Oxygen Delivery Method Room Air 03/10/24 21:53 Const: Awake, alert, no acute distress, nontoxic appearing Cardiac: regular rate, regular rhythm RESP: unlabored, clear bilaterally, no wheezing Skin: Warm, Dry, intact, no rashes Neuro: AO x3, CN II-XII grossly intact, moves all extremities Course Orders Ordered: ED Orders 03/10/24 22:03 EKG-12 Lead Stat 03/10/24 22:33 Chest [XR chest 1V] Stat 03/10/24 22:45 CBC Auto Diff [Complete Blood Count AUTO DIFF] Stat CMP [Comprehensive Metabolic Panel] Stat D Dimer Stat Troponin & CK Cardiac Panel Stat Vital Signs Vital signs: Vital Signs - 8 hr 03/10/24 21:53 03/10/24 21:59 03/10/24 21:59 Temperature 98.0 F Pulse Rate 65 65 Respiratory Rate 21 Blood Pressure 136/79 136/79 Pulse Oximetry 98 99 Oxygen Delivery Method Room Air 03/10/24 22:00 03/10/24 22:30 03/10/24 23:00 Temperature Pulse Rate 64 60 58 L Respiratory Rate 20 18 Blood Pressure Pulse Oximetry 98 98 98 Oxygen Delivery Method Room Air 03/10/24 23:30 Temperature Pulse Rate 56 L Respiratory Rate 13 Blood Pressure Pulse Oximetry 98 Oxygen Delivery Method Room Air MDM - Chest Pain Differential Diagnosis Differential diagnosis: Likely pneumothorax, atypical chest pain and costochondritis Lab Data 03/10/24 22:45 03/10/24 22:45 Labs: Lab Results 03/10/24 Range/Units 22:45 WBC 7.6 (4.5-11.0) X10^3/uL RBC 5.23 (4.5-5.9) X10^6/uL Hgb 14.6 (13.5-17.5) g/dL Hct 42.8 (41-53) % MCV 81.8 (80-100) fL MCH 27.9 (26-34) PG MCHC 34.1 (30-36) % RDW 13.5 (11.6-14.8) % Plt Count 284 (150-400) X10^3/uL Neut % (Auto) 51.8 (50-75) % Lymph % (Auto) 34.9 (25-40) % Owen % (Auto) 10.5 (3-14) % Eos % (Auto) 1.7 L (2-4) % Baso % (Auto) 1.1 (0-2) % Neut # (Auto) 3900 (9094-8370) /uL Lymph # (Auto) 2600 (1715-2379) /uL Owen # (Auto) 800 (0-900) /uL Eos # (Auto) 100 (0-450) /uL Baso # (Auto) 100 (0-100) /uL D-Dimer < 215 (<500) ng/ml Sodium 138 (137-145) mmol/L Potassium 3.8 (3.4-5.1) mmol/L Chloride 105 (98-107) mmol/L Carbon Dioxide 28 (22-32) mmol/L BUN 13 (9-20) mg/dL Creatinine 0.77 (0.66-1.25) mg/dL Estimated GFR > 60 (>60) mL/min BUN/Creatinine Ratio 16.9 (6-22) Glucose 101 H (70-100) mg/dL Calcium 9.4 (8.4-10.2) mg/dL Total Bilirubin 0.7 (0.2-1.3) mg/dL AST 32 (17-59) IU/L ALT 39 (<50) IU/L Alkaline Phosphatase 57 (38-126) U/L Total Creatine Kinase 66 (55-170) U/L Troponin I < 0.012 (0.01-0.034) ng/mL Total Protein 7.2 (6.3-8.2) g/dL Albumin 4.3 (3.5-5.0) g/dL Globulin 2.9 (1.7-4.1) g/dL Albumin/Globulin Ratio 1.5 (1.0-2.8) Imaging Data Chest x-ray: Radiologist's Impression: PROCEDURE: XR CHEST 1V INDICATIONS: chest pain TECHNIQUE: One view of the chest was acquired. COMPARISON: [facility], , XR CHEST 1V, 02/03/2024, 12:55. [facility], , XR CHEST 1V, 12/30/2023, 22:03. FINDINGS: Surgical changes and devices: None. Lungs and pleura: Lungs are clear. No pleural effusions or pneumothorax. Mediastinum: Mediastinal contours appear normal. Heart size is normal. Bones and chest wall: No suspicious bony lesions. Overlying soft tissues appear unremarkable. IMPRESSION: No acute cardiopulmonary abnormality is seen. Dictated by: James Elam M.D. on 03/10/2024 at 23:29 Approved by: James Elam M.D. on 03/10/2024 at 23:31 ECG Data Interpretation: Normal sinus rhythm at 66 beats per minute. Normal DC, no ST T wave changes, QTC 389 MDM Narrative Medical decision making narrative: Chest, neck, arm pain. Seen previously for chest pains in the past with normal workup. Physical exam is unremarkable, EKG normal sinus rhythm. Patient has an appointment in several weeks with his PCP but here today due to episode of lightheadedness. Laboratory work, chest x-ray ordered for assessment. Laboratory work is reviewed, no significant abnormalities, no change from priors. Troponin undetectable. X-ray negative for acute findings. D-dimer undetectable. Overall reassuring exam and workup. Patient informed of all lab and imaging findings, again encouraged PCP follow up for this matter. Patient may need Holter monitor or other testing as deemed appropriate by his primary care doctor. Discharge Plan Departure Patient Disposition: Home Clinical Impression: Chest pain Instructions: DI for Atypical Chest Pain Activity Restrictions/Additional Instructions: Your workup today did not show any life-threatening causes of your chest pain. Your EKG is normal, your heart enzymes are normal, your chest x-ray did not show any concerning findings, and a D-dimer, which can test for presence of blood clots, was normal, indicating very low probability of blood clot in your body. I recommend Tylenol and ibuprofen as needed for pain, and following up with primary care doctor. Prescriptions: No Action meloxicam 7.5 mg tablet 7.5 mg PO BID Qty: 60 2RF hydrocodone-acetaminophen 5-325 mg tablet 1 tab PO Q8H PRN (Reason: pain) Qty: 20 0RF methylprednisolone [Medrol (Thad)] 4 mg tablets,dose pack See Rx Instructions .ROUTE .COMPLEX Qty: 21 0RF Rx Instructions: orally per package directions Referrals: Key Nguyen MD [Primary Care Provider] - Stand Alone Forms: Patient Portal/API
[2024-03-10 22:55] LABS: Add Manual Diff / Slide Review NO; Basophils Absolute Auto 100 /uL (0-100); Basophils Percent Auto 1.1 % (0-2); Eosinophils Absolute Auto 100 /uL (0-450); Eosinophils Percent Auto 1.7 % (2-4); Hematocrit 42.8 % (41-53); Hemoglobin 14.6 g/dL (13.5-17.5); Lymphocytes Absolute Auto 2600 /uL (1100-4500); Lymphocytes Percent Auto 34.9 % (25-40); Mean Corpuscular HGB Conc 34.1 % (30-36); Mean Corpuscular Hemoglobin 27.9 PG (26-34); Mean Corpuscular Volume 81.8 fL (80-100); Monocytes Absolute Auto 800 /uL (0-900); Monocytes Percent Auto 10.5 % (3-14); Neutrophils Absolute Auto 3900 /uL (1500-7000); Neutrophils Percent Auto 51.8 % (50-75); Platelet Count 284 X10^3/uL (150-400); Red Blood Cell Count 5.23 X10^6/uL (4.5-5.9); Red Cell Distribution Width 13.5 % (11.6-14.8); White Blood Cell Count 7.6 X10^3/uL (4.5-11.0)
[2024-03-10 23:00] VITALS: PULSE 58; RESP 18; O2SAT 98
[2024-03-10 23:07] LABS: D Dimer < 215 ng/ml (<500)
[2024-03-10 23:08] LABS: Alanine Aminotransferase 39 IU/L (<50); Albumin 4.3 g/dL (3.5-5.0); Albumin Globulin Ratio 1.5 (1.0-2.8); BUN Creatinine Ratio 16.9 (6-22); Bilirubin Total 0.7 mg/dL (0.2-1.3); Blood Urea Nitrogen 13 mg/dL (9-20); Calcium 9.4 mg/dL (8.4-10.2); Carbon Dioxide 28 mmol/L (22-32); Chloride 105 mmol/L (98-107); Creatine Kinase 66 U/L (55-170); Estimated Glomerular Filt Rate > 60 mL/min (>60); Globulin 2.9 g/dL (1.7-4.1); Glucose 101 mg/dL (70-100); Sodium 138 mmol/L (137-145); Total Protein 7.2 g/dL (6.3-8.2)
[2024-03-10 23:12] LABS: HEMOLYSIS 57 (0-50); Potassium 3.8 mmol/L (3.4-5.1)
[2024-03-10 23:13] LABS: Alkaline Phosphatase 57 U/L (38-126); Aspartate Aminotransferase 32 IU/L (17-59)
[2024-03-10 23:19] LABS: Troponin I < 0.012 ng/mL (0.01-0.034)
[2024-03-10 23:30] VITALS: PULSE 56; RESP 13; O2SAT 98
== END 2024-03-10 23:48 | disposition home or self-care (01) ==
PROVIDERS: Emergency Provider Emergency Medicine; PCP Student in an Organized Health Care Education/Training Program
DX: R07.9 Chest pain, unspecified (principal); M54.2 Cervicalgia; R42 Dizziness and giddiness
CPT/HCPCS: 36415; 71045; 80053; 82550; 84484; 85025; 85379; 93005; 93010; 99283; 99284

== ENCOUNTER 2024-08-15 22:10 | Emergency (ER) | payer OTHER, SELFPAY ==
[2024-08-15 22:18] VITALS: BP 138/89; PULSE 76; RESP 16; TEMP 37.1; O2SAT 99; BMI 25.7
--- NOTE | 2024-08-15 22:33 | ED.GENADULT ---
HPI - General Adult General Chief complaint: Extremity Problem,Nontraumatic Stated complaint: nerve and bone px, MCDONALD, blurry vision Time Seen by Provider: 08/15/24 22:11 Source: patient Mode of arrival: Ambulatory Limitations: no limitations History of Present Illness HPI narrative: Patient was a 33-year-old male who is here for evaluation of intermittent pain to both of his forearms. States that he occasionally has neck pain as well. Occasionally has headache and blurry vision. He states the symptoms can come in conjunction with the each other and sometimes independently. He was not currently having any symptoms. He has had these symptoms in the past. Has been evaluated in the emergency department. Has seen his primary doctor. Has a referral in to see a neurologist but nothing is scheduled. He comes in the emergency department this evening because his symptoms seemed to be more intense today. Related Data Previous Rx's Medication Instructions Recorded hydrocodone 5 mg-acetaminophen 325 1 tab PO Q8H PRN pain #20 tabs 11/12/23 mg tablet meloxicam 7.5 mg tablet 7.5 mg PO BID #60 tabs 11/12/23 methylprednisolone 4 mg tablets in See Rx Instructions PO .COMPLEX 11/12/23 a dose pack (Medrol (Thad)) #21 ea Allergies Allergy/AdvReac Type Severity Reaction Status Date / Time No Known Drug Allergies Allergy Verified 03/10/24 22:03 Review of Systems Review of Systems Narrative: See HPI Patient History Social History Smoking Status: Never smoker Smoking Status: Never smoker alcohol intake frequency: other Exam Initial Vital Signs Initial Vital Signs: Vital Signs Temperature 98.7 F 08/15/24 22:18 Pulse Rate 76 08/15/24 22:18 Respiratory Rate 16 08/15/24 22:18 Blood Pressure 138/89 08/15/24 22:18 Pulse Oximetry 99 08/15/24 22:18 Oxygen Delivery Method Room Air 08/15/24 22:18 Const General: cooperative, comfortable and No ill appearing HENMT Head: normal to inspection and normocephalic Resp Effort & Inspection: normal respiratory effort Auscultation: clear to auscultation bilaterally Cardio Rate: regular rate Rhythm: regular rhythm Neuro General: patient alert, patient awake, patient oriented x3 and moves all extremities Cranial Nerves: CN's II-XI intact bilaterally Cognition: normal cognition Gait: normal gait Sensory Exam: no sensory deficits noted Extrem General: normal to inspection and capillary refill normal Course Orders Ordered: ED Orders 08/15/24 22:40 Basic Metabolic Panel Stat Complete Blood Count AUTO DIFF Stat Vital Signs Vital signs: Vital Signs - 8 hr 08/15/24 22:18 08/15/24 23:18 Temperature 98.7 F Pulse Rate 76 70 Respiratory Rate 16 15 Blood Pressure 138/89 120/78 Pulse Oximetry 99 99 Oxygen Delivery Method Room Air Room Air Medical Decision Making Lab Data 08/15/24 22:40 08/15/24 22:40 Labs: Lab Results 08/15/24 Range/Units 22:40 WBC 7.4 (4.5-11.0) X10^3/uL RBC 5.32 (4.5-5.9) X10^6/uL Hgb 14.9 (13.5-17.5) g/dL Hct 43.6 (41-53) % MCV 81.9 (80-100) fL MCH 28.0 (26-34) PG MCHC 34.2 (30-36) % RDW 13.4 (11.6-14.8) % Plt Count 278 (150-400) X10^3/uL Neut % (Auto) 47.6 L (50-75) % Lymph % (Auto) 39.3 (25-40) % [place] % (Auto) 9.4 (3-14) % Eos % (Auto) 2.5 (2-4) % Baso % (Auto) 1.2 (0-2) % Neut # (Auto) 3500 (4078-6246) /uL Lymph # (Auto) 2900 (2485-0073) /uL [place] # (Auto) 700 (0-900) /uL Eos # (Auto) 200 (0-450) /uL Baso # (Auto) 100 (0-100) /uL Sodium 137 (137-145) mmol/L Potassium 3.6 (3.4-5.1) mmol/L Chloride 104 (98-107) mmol/L Carbon Dioxide 25 (22-32) mmol/L BUN 15 (9-20) mg/dL Creatinine 0.69 (0.66-1.25) mg/dL Estimated GFR > 60 (>60) mL/min BUN/Creatinine Ratio 21.7 (6-22) Glucose 109 H (70-100) mg/dL Calcium 9.0 (8.4-10.2) mg/dL MDM Narrative Medical decision making narrative: Patient has a negative exam it was now asymptomatic with normal labs and symptoms that have been present for several months and are intermittent. Patient needs to follow-up with neurology. No further workup needed in the emergency department. Patient was given return precautions. He expressed understanding and agreement. Discharge Plan Departure Patient Disposition: Home Clinical Impression: Paresthesias Activity Restrictions/Additional Instructions: I do recommend that you continue to take all of your medications as directed. I do think that you would benefit from a follow-up with Neurology so in the referral goes through please schedule this appointment. Return to the emergency department for new symptoms. Prescriptions: No Action meloxicam 7.5 mg tablet 7.5 mg PO BID Qty: 60 2RF hydrocodone-acetaminophen 5-325 mg tablet 1 tab PO Q8H PRN (Reason: pain) Qty: 20 0RF methylprednisolone [Medrol (Thad)] 4 mg tablets,dose pack See Rx Instructions .ROUTE .COMPLEX Qty: 21 0RF Rx Instructions: orally per package directions Referrals: Brandin Alcazar PA-C [Primary Care Provider] - Stand Alone Forms: Patient Portal/API/Survey
[2024-08-15 22:46] LABS: Add Manual Diff / Slide Review NO; Basophils Absolute Auto 100 /uL (0-100); Basophils Percent Auto 1.2 % (0-2); Eosinophils Absolute Auto 200 /uL (0-450); Eosinophils Percent Auto 2.5 % (2-4); Hematocrit 43.6 % (41-53); Hemoglobin 14.9 g/dL (13.5-17.5); Lymphocytes Absolute Auto 2900 /uL (1100-4500); Lymphocytes Percent Auto 39.3 % (25-40); Mean Corpuscular HGB Conc 34.2 % (30-36); Mean Corpuscular Volume 81.9 fL (80-100); Monocytes Absolute Auto 700 /uL (0-900); Monocytes Percent Auto 9.4 % (3-14); Neutrophils Absolute Auto 3500 /uL (1500-7000); Neutrophils Percent Auto 47.6 % (50-75); Platelet Count 278 X10^3/uL (150-400); Red Blood Cell Count 5.32 X10^6/uL (4.5-5.9); Red Cell Distribution Width 13.4 % (11.6-14.8); White Blood Cell Count 7.4 X10^3/uL (4.5-11.0)
[2024-08-15 22:57] LABS: BUN Creatinine Ratio 21.7 (6-22); Blood Urea Nitrogen 15 mg/dL (9-20); Carbon Dioxide 25 mmol/L (22-32); Chloride 104 mmol/L (98-107); Estimated Glomerular Filt Rate > 60 mL/min (>60); Glucose 109 mg/dL (70-100); HEMOLYSIS < 15 (0-50); Potassium 3.6 mmol/L (3.4-5.1); Sodium 137 mmol/L (137-145)
[2024-08-15 23:18] VITALS: BP 120/78; PULSE 70; RESP 15; O2SAT 99
== END 2024-08-15 23:18 | disposition home or self-care (01) ==
PROVIDERS: Emergency Provider Emergency Medicine; PCP Physician Assistant
DX: R20.2 Paresthesia of skin (principal); R51.9 Headache, unspecified; H53.8 Other visual disturbances; M54.2 Cervicalgia
CPT/HCPCS: 80048; 85025; 99281; 99283

== ENCOUNTER 2025-04-01 07:03 | Day surgery (SDC) | payer OTHER, SELFPAY ==
[2025-04-01] VITALS (7 sets, daily range): BP systolic 83–121; BP diastolic 47–83; PULSE 64–76; RESP 11–20; TEMP 36.2; O2SAT 98–100
--- NOTE | 2025-04-01 | PATH_ITS ---
[facility] Accession Number: [id number] No. of containers..03 Tissue . 01 Material submitted: . PART A: duodenum - DUODENUM PART B: stomach - ANTRUM PART C: small bowel - TERMINAL ILEUM . 01 Diagnosis: Part A: DUODENUM: Duodenal mucosa with no diagnostic alterations. No active inflammation and no evidence of celiac disease. . Part B: ANTRUM: Gastric mucosa with mild chronic inflammation. No Helicobacter organisms identified. No intestinal metaplasia, dysplasia, or malignancy identified. . Part C: TERMINAL ILEUM: Ileal mucosa with no diagnostic alterations. No active inflammation, granulomas, or dysplasia identified. [facility] 04/12/2025 1133 Local . 01 Electronically signed: . Phil Young MD, Pathologist NPI- [id number] . 01 Gross description: . Part A: DUODENUM: Received in formalin is 1 fragment(s) of larson, soft tissue measuring 0.4 x 0.3 x 0.2 cm submitted entirely in 1 cassette(s) . Part B: ANTRUM: Received in formalin is 1 fragment(s) of larson, soft tissue measuring 0.3 x 0.2 x 0.1 cm submitted entirely in 1 cassette(s) . Part C: TERMINAL ILEUM: Received in formalin is 1 fragment(s) of larson, soft tissue measuring 0.2 x 0.1 x 0.1 cm submitted entirely in 1 cassette(s) /SHERIE 04/12/2025 1133 Local . 01 Microscopic: . Part B: ANTRUM: An immunohistochemical stain was performed to evaluate for Helicobacter organisms and is negative. The control stains appropriately. * This test was developed and the performance characteristics were validated by [facility]. It has not been cleared or approved by the Food and Drug Administration. . 01 Pathologist provided ICD-10: K29.50 . 01 CPT . 512917, 446451, 667744, S57613 Specimen Comment: A courtesy copy of this report has been sent to [phone] Performed at: [address] [id number] MD Phil Young MD Phone: [phone]
[2025-04-01] MEDS: LACTATED RINGERS 1,000 ML 42 ML IV ×2 (07:50→09:22)
--- NOTE | 2025-04-01 08:26 | PM.PREOP ---
Pre-operative Note COVID-19 COVID-19 status: Not tested Interval Note History & Physical reviewed/Exam performed by Physician: Yes Changes to H&P: No ASA Class (for procedural sedation): I
--- NOTE | 2025-04-01 09:08 | PM.OP.EC ---
Operative Date/Time/Diagnoses Date of procedure: 04/01/25 Time of procedure: 09:08 Pre-op diagnosis: Hematochezia Post-op diagnosis: same Procedure & Clinicians Study performed: EGD and colonoscopy Same procedure(s) as scheduled: Yes Surgeon: Jalil El Anesthesia Type: MAC +/- Procedure Notes Procedure in detail: Surgeon: Jalil El MD Anesthesia: Zorina Coombs CORRECTIONAL THERAPY DIRECTOR Procedure in detail: A timeout was performed. A bite blocked was placed and monitors were attached to the patient. The patient was positioned in the left lateral decubitus position. Sedation was administered. Once the patient was sedated the endoscope was inserted through the bite block and passed through the esophagus and stomach and into the duodenum. No obvious abnormalities were seen. Random biopsies were taken from the duodenal mucosa with cold forceps. We then withdrew the scope into the stomach. There was mild antritis and random biopsies were taken from the antrum with cold forceps. The endoscope was retroflexed and no hiatal hernia was noted and no other abnormalities were seen in the stomach. The endoscope was straightned and withdrawn into the esophagus. No abnormalities were found in the stomach. EGD findings: Mild antritis Next we repositioned the patient for a colonoscopy. A digital rectal exam was performed and was normal. The colonoscope was inserted and advanced to the cecum. The appendiceal orifice was identified and photographed. The scope was slowly withdrawn over greater than 6 minutes. The terminal ileum was intubated and the mucosa appeared normal. Random biopsies were taken with cold forceps from the terminal ileal mucosa. The rest of the colon appeared normal. The scope was retroflexed in the rectum and no other abnormalities were found. Colonoscopy findings: Grossly normal colon and terminal ileum Total procedural EBL: 5 mL Scope withdrawal time: 6 minutes Sedation minutes: 16 minutes Post-procedure Disposition: PACU
== END 2025-04-01 09:40 | disposition home or self-care (01) ==
PROVIDERS: PCP Physician Assistant; Referring Provider Surgery; Visit Provider Surgery
PROC: 0DJ08ZZ Inspection of Upper Intestinal Tract, Via Natural or Artificial Opening Endoscopic (ICD-10-PCS; CPT 45380; principal; 2025-04-01 08:15)
PROC: 0DJD8ZZ Inspection of Lower Intestinal Tract, Via Natural or Artificial Opening Endoscopic (ICD-10-PCS; CPT 45378; 2025-04-01 08:15)
DX: K92.1 Melena (principal); Z87.891 Personal history of nicotine dependence; R07.9 Chest pain, unspecified; R10.10 Upper abdominal pain, unspecified; R11.10 Vomiting, unspecified; K29.50 Unspecified chronic gastritis without bleeding
CPT/HCPCS: 45380; 43239; J2704; J3010

== ENCOUNTER → 2025-06-09 07:20 | Outpatient (CLI) | payer OTHER, SELFPAY ==
--- NOTE | 2025-06-09 07:21 | DI.US.S_ITS ---
PROCEDURE: US ABDOMEN LIMITED INDICATIONS: EPIGASTRIC PAIN TECHNIQUE: Real-time focused scanning was performed of the abdomen, with image documentation. COMPARISON: None. FINDINGS: The liver is normal in size and demonstrates no suspicious lesions. Within the right lobe of the liver, there is a septated cyst seen that measures up to 8 mm. No abnormal vascularity can be seen. No findings of gallstones or sludge are seen. The gallbladder wall is not thickened, measuring 3 mm or less. No specific pericholecystic fluid is seen. The sonographic Perdomo sign is negative. There is no biliary dilatation, the common bile duct measures 3 mm. No significant pancreatic abnormality is seen on these images. Overall scan quality is limited by bowel gas. IMPRESSION: The gallbladder demonstrates a normal sonographic appearance. No biliary dilatation is seen. Dictated by: Isrrael Cochran M.D. on 06/09/2025 at 17:05 Approved by: Isrrael Cochran M.D. on 06/09/2025 at 17:06
== END ==
LOC: US 07:21
PROVIDERS: PCP Physician Assistant; Referring Provider Physician Assistant
DX: R10.13 Epigastric pain (principal)
CPT/HCPCS: 76705

== ENCOUNTER 2025-06-13 23:29 | Emergency (ER) | payer OTHER, SELFPAY ==
[2025-06-13 23:52] VITALS: BP 111/78; PULSE 65; RESP 16; TEMP 37; O2SAT 96; BMI 25.1
--- NOTE | 2025-06-14 00:23 | ED.HA ---
HPI - Headache General Chief Complaint: Headache Stated Complaint: Headache x 1 month Time Seen by Provider: 06/14/25 00:02 Mode of arrival: Ambulatory History of Present Illness HPI Narrative: 34-year-old male who has been having sinus pressure and initially more of a generalized headache worse with loud sounds off and on for the past month. His pain is pretty much resolved now with some Tylenol but the pressure has not resolved. Related Data Home Medications ?Medication ?Instructions ?Recorded ?Confirmed acetaminophen 500 mg tablet 500 mg PO Q4H PRN pain 03/12/25 03/31/25 ibuprofen 400 mg tablet 400 mg PO Q6H PRN pain (scale 03/12/25 03/31/25 score 4-6) Previous Rx's ?Medication ?Instructions ?Recorded amoxicillin 875 mg-potassium 1 tab PO BID #14 tabs 06/14/25 clavulanate 125 mg tablet fluticasone propionate 50 1 spray intranasal DAILY 14 days 06/14/25 mcg/actuation nasal #16 grams spray,suspension (Flonase Allergy Relief) Allergies Allergy/AdvReac Type Severity Reaction Status Date / Time No Known Drug Allergies Allergy Verified 06/13/25 23:52 Review of Systems Review of Systems ROS Unobtainable: All systems reviewed & are unremarkable except as noted in HPI and below Patient History Social History Smoking Status: Never smoker Smoking Status: Never smoker alcohol intake frequency: other Exam Narrative Exam Narrative: General: Patient appears to be in no acute distress, acting appropriately Head: normocephalic, atraumatic, pain with palpation over frontal and maxillary sinuses. HEENT: Pupils equal round reactive, eyes tracking well, neck supple, no JVD Heart: regular rate and rhythm, no murmurs, rubs, or gallops heard Lungs: clear to auscultation, no adventitious sounds Abdomen: soft , nontender, nondistended, positive bowel sounds Neurological: no focal neurological signs, moving all extremities well, alert and oriented x3, Psych: good judgment ,good insight, mood is normal. Initial Vital Signs Initial Vital Signs: Vital Signs Temperature 98.6 F 06/13/25 23:52 Pulse Rate 65 06/13/25 23:52 Respiratory Rate 16 06/13/25 23:52 Blood Pressure 111/78 06/13/25 23:52 Pulse Oximetry 96 11/09/25 23:52 Oxygen Delivery Method Room Air 06/13/25 23:52 Course Orders Ordered: Discontinued Medications Amoxicillin/Clavulanate Potassium (Amoxicillin/Clav 875/125 Mg) 1 tab PO NOW ONE Stop: 06/14/25 00:26 Last Admin: 06/14/25 00:48 Dose: 1 tab Documented By: JAZLYN Vital Signs Vital signs: Vital Signs - 8 hr 06/13/25 23:52 06/14/25 00:52 Temperature 98.6 F Pulse Rate 65 69 Respiratory Rate 16 16 Blood Pressure 111/78 115/69 Pulse Oximetry 96 98 Oxygen Delivery Method Room Air Room Air MDM - Headache MDM Narrative Medical decision making narrative: 34-year-old male who has been having more generalized headache and pressure in his head for the past month off and on. The pain has subsided with some Tylenol but the pressure still exists. Based on physical exam, patient more likely dealing with a sinusitis. He was given a dose of Augmentin and we will finish a 1 week course of Augmentin and follow up if symptoms worsen. Discharge Plan Departure Patient Disposition: Home Clinical Impression: Sinusitis Qualifiers: Sinusitis location: pansinusitis Chronicity: subacute Qualified Code(s): J01.40 - Acute pansinusitis, unspecified Instructions: DI for Sinus Headache Activity Restrictions/Additional Instructions: Go ahead and use antibiotic as prescribed as well as the Flonase nasal spray for a sinus relief. Follow up with PCP or can come back here if sinus pressure has not relieved. Prescriptions: New amoxicillin-pot clavulanate 875-125 mg tablet 1 tab PO BID Qty: 14 0RF fluticasone propionate [Flonase Allergy Relief] 50 mcg/actuation spray,suspension 1 spray intranasal DAILY 14 Days Qty: 16 0RF Rx Instructions: administer into each nostril No Action acetaminophen 500 mg tablet 500 mg PO Q4H PRN (Reason: pain) ibuprofen 400 mg tablet 400 mg PO Q6H PRN (Reason: pain (scale score 4-6)) Referrals: Brandin Alcazar PA-C [Primary Care Provider, Medical] Stand Alone Forms: Patient Portal/API
[2025-06-14] MEDS: AMOXICILLIN/CLAV 875/125 MG 1 TAB PO (00:48)
[2025-06-14 00:52] VITALS: BP 115/69; PULSE 69; RESP 16; O2SAT 98
== END 2025-06-14 00:53 | disposition home or self-care (01) ==
PROVIDERS: Emergency Provider Family Medicine; PCP Physician Assistant
DX: J01.40 Acute pansinusitis, unspecified (principal)
CPT/HCPCS: 99283